=== PATIENT | female | born 1995 | race Caucasian/White ===

== ENCOUNTER 2018-04-11 16:43 | Emergency (ER) | payer SELFPAY ==
[~2018-04-11] VITALS: Ht 162.6 cm; Wt 51.5 kg
[2018-04-11 16:44] VITALS: BP 138/86
[2018-04-11 17:39] LABS: BACTERIA,URINE FEW /HPF (0-FEW); BILIRUBIN,URINE NEG (NEG); CLARITY,URINE CLEAR; COLOR,URINE YELLOW; GLUCOSE,URINE NEG (NEG); NITRITE,URINE NEG (NEG); RBC,URINE OCC /HPF (0-2); SQUAMOUS EPITHELIAL CELL,UR OCC /LPF; UROBILINOGEN,URINE 0.2 mg/dL (0.2 mg/dL)
--- NOTE | 2018-04-11 18:08 | PHYS DOC ---
Past History Past Medical History: No Pertinent History Past Surgical History: , Other Alcohol Use: None Drug Use: None Adult General Chief Complaint Chief Complaint: VAGINAL PROBLEM HPI HPI Patient is a 23 year old female Mirena IUD in place who presents with a pinning of vaginal discharge for 2 weeks. Patient complaining of intermittent episodes of brownish vaginal discharge for the last 2 weeks without abdominal pain, nausea, vomiting, urinary symptoms, fever and chills. Patient also states he usually gets her menstruation every month that did not have any menstruation since early February. Review of Systems Review of Systems Constitutional: Denies fever or chills [] Eyes: Denies change in visual acuity, redness, or eye pain [] HENT: Denies nasal congestion or sore throat [] Respiratory: Denies cough or shortness of breath [] Cardiovascular: No additional information not addressed in HPI [] GI: Denies abdominal pain, nausea, vomiting, bloody stools or diarrhea [] : Denies dysuria or hematuria [] Musculoskeletal: Denies back pain or joint pain [] Integument: Denies rash or skin lesions [] Neurologic: Denies headache, focal weakness or sensory changes [] Endocrine: Denies polyuria or polydipsia [] All other systems were reviewed and found to be within normal limits, except as documented in this note. Allergies Allergies Allergies Coded Allergies Type Severity Reaction Last Updated Verified No Known Drug Allergies 04/11/18 No Physical Exam Physical Exam Constitutional: Well developed, well nourished, no acute distress, non-toxic appearance. [] HENT: Normocephalic, atraumatic Eyes: PERRLA, EOMI, conjunctiva normal, no discharge. [] Neck: Normal range of motion, no tenderness, supple, no stridor. [] Cardiovascular:Heart rate regular rhythm, no murmur [] Lungs & Thorax: Bilateral breath sounds clear to auscultation [] Abdomen: Bowel sounds normal, soft, no tenderness, no masses, no pulsatile masses. Vaginal exam in present of bar roller showed mild to moderate vaginal bleeding with string of IUD in place without adnexal mass or tenderness Skin: Warm, dry, no erythema, no rash. [] Back: No tenderness, no CVA tenderness. [] Extremities: No tenderness, no cyanosis, no clubbing, ROM intact, no edema. [] Neurologic: Alert and oriented X 3, normal motor function, normal sensory function, no focal deficits noted. [] Psychologic: Affect normal, judgement normal, mood normal. [] Current Patient Data Vital Signs Vital Signs Date Time Temp Pulse Resp B/P (MAP) Pulse Ox O2 Delivery O2 Flow Rate FiO2 04/11/18 16:44 97.9 88 16 99 Room Air Lab Results Laboratory Tests Test 04/11/18 16:52 04/11/18 16:57 Urine Collection Type Unknown Urine Color Yellow Urine Clarity Clear Urine pH 6.0 Urine Specific [place] 1.025 Urine Protein Neg (NEG-TRACE) Urine Glucose (UA) Neg mg/dL (NEG) Urine Ketones (Stick) Trace mg/dL (NEG) Urine Blood Small (NEG) Urine Nitrite Neg (NEG) Urine Bilirubin Neg (NEG) Urine Urobilinogen Dipstick 0.2 mg/dL (0.2 mg/dL) Urine Leukocyte Esterase Neg (NEG) Urine RBC Occ /HPF (0-2) Urine WBC 1-4 /HPF (0-4) Urine Squamous Epithelial Cells Occ /LPF Urine Bacteria Few /HPF (0-FEW) Urine Mucus Mod /LPF POC Urine HCG, Qualitative hcg negative (Negative) Microbiology 04/11/18 Wet Prep - Final, Complete EKG EKG [] Radiology/Procedures Radiology/Procedures [] Course & Med Decision Making Course & Med Decision Making Pertinent Labs reviewed. (See chart for details) Evaluation of patient in ER showed 23-year-old female patient with complaining of vaginal discharge for 2 weeks and missing menstruation. Patient started to have her menstruation while she was in ER. UA and month was unremarkable and patient instructed to follow up with her [facility] for obtaining a Pap smear. Dragon Disclaimer Dragon Disclaimer This electronic medical record was generated, in whole or in part, using a voice recognition dictation system. Departure Departure: Impression: Primary Impression: Delayed menstruation Additional Impression: Vaginal discharge Disposition: 01 HOME, SELF-CARE (at 1806) Condition: STABLE Referrals: PCP,NO (PCP) Patient Instructions: Vaginitis, [id number] Additional Instructions: Drink plenty of liquids Follow-up with your [facility] physician in 3-5 days Return to ER if not getting better Problem Qualifiers ERNIE NORIEGA MD Apr 11, 2018 18:08
[2018-04-13 14:08] LABS: CHLAMYDIA PROBE Negative (Negative)
== END 2018-04-11 18:18 | disposition home or self-care (01) ==
LOC: ER 16:43
DX: N91.0 Primary amenorrhea (principal); N93.8 Other specified abnormal uterine and vaginal bleeding; Z98.890 Other specified postprocedural states
CPT/HCPCS: 36415; 81001; 81025; 87491; 87591; 99283; Q0111

== ENCOUNTER 2018-04-18 18:04 | Emergency (ER) | payer SELFPAY ==
[~2018-04-18] VITALS: Ht 162.6 cm; Wt 53.0 kg
--- NOTE | 2018-04-18 18:17 | ED.ADGEN ---
Past History Past Medical History: No Pertinent History, Constipation Past Medical History Hx. of colon perforation-2013, colostomy bag x 6 months Past Surgical History: , Other Alcohol Use: None Drug Use: None Adult General Chief Complaint Chief Complaint ",, I have not eaten for two days.. my abd. hurts all over.. I vomit even water..." HPI HPI Patient is a 23 year old female who presents with above complaints and abd. pain x 2 days. Pt. seen 05/29 for vaginal discharge and abd. pain. Pt. also seen at [facility] for similar complaint and CT at that time was negative per pt. Pt. symptoms resolved, but generalized abd. pain return the past 2 days with N/ V. Pt. is passing gas and stool. Reports normal colored and stool consistency in past 48 hrs. Pt. has hx of Mirena IUD, and C section with last of twins. Hx. of Colon perforation and repair in 2013 in [facility]. Pt. denies trauma, bad food, or specific ill contacts. Recently move from [facility]. to [place] two months ago. The denies drug use but does smoke. Review of Systems Review of Systems Constitutional: Denies fever or chills [] Eyes: Denies change in visual acuity, redness, or eye pain [] HENT: Denies nasal congestion or sore throat [] Respiratory: Denies cough or shortness of breath [] Cardiovascular: No additional information not addressed in HPI [] GI: Complaints of generalized abdominal pain, nausea, vomiting,. Denies bloody stools or diarrhea [] : Denies dysuria or hematuria [] Musculoskeletal: Denies back pain or joint pain [] Integument: Denies rash or skin lesions [] Neurologic: Denies headache, focal weakness or sensory changes [] Endocrine: Denies polyuria or polydipsia [] All other systems were reviewed and found to be within normal limits, except as documented in this note. Family History Family History Non-contributory Current Medications Current Medications Current Medications Medications (Trade) Dose Ordered Sig/Tiara Start Time Stop Time Status Last Admin Dose Admin Famotidine (Pepcid Vial) 20 mg 1X ONCE 04/18/18 18:30 04/18/18 18:31 DC 04/18/18 18:38 20 MG Ketorolac Tromethamine (Toradol 30mg Vial) 30 mg 1X ONCE 04/18/18 19:30 04/18/18 19:31 DC 04/18/18 19:11 30 MG Lactated Ringer's 1,000 ml @ 1,000 mls/hr Q1H 04/18/18 18:20 04/18/18 19:19 DC 04/18/18 18:37 1,000 MLS/HR Magnesium Hydroxide (Milk Of Magnesia) 2,400 mg 1X ONCE 04/18/18 19:45 04/18/18 19:46 DC 04/18/18 19:20 2,400 MG Ondansetron HCl (Zofran) 8 mg 1X ONCE 04/18/18 18:30 04/18/18 18:31 DC 04/18/18 18:38 8 MG Allergies Allergies Allergies Coded Allergies Type Severity Reaction Last Updated Verified No Known Drug Allergies 04/11/18 No Physical Exam Physical Exam Constitutional: Well developed, well nourished, in moderately acute distress, non-toxic appearance. [] HENT: Normocephalic, atraumatic, bilateral external ears normal, oropharynx moist, no oral exudates, nose normal. [] Eyes: PERRLA, EOMI, conjunctiva normal, no discharge. [] Neck: Normal range of motion, no tenderness, supple, no stridor. [] Cardiovascular:Heart rate regular rhythm, no murmur [] Lungs & Thorax: Bilateral breath sounds clear to auscultation [] Abdomen: Bowel sounds normal, soft, generalized tenderness, no masses, no pulsatile masses. [Old surgical scar- C section and Colon repair/ Colostomy, There seems to be some localization of abd. pain in Lt. Lower quadrant. Skin: Warm, dry, no erythema, no rash. [] Back: No tenderness, no CVA tenderness. [] Extremities: No tenderness, no cyanosis, no clubbing, ROM intact, no edema. [] Neurologic: Alert and oriented X 3, normal motor function, normal sensory function, no focal deficits noted. [] Psychologic: Affect anxious, judgement normal, mood normal. [] Current Patient Data Vital Signs Vital Signs Date Time Temp Pulse Resp B/P (MAP) Pulse Ox O2 Delivery O2 Flow Rate FiO2 04/18/18 19:49 76 117/59 (78) 97 04/18/18 19:12 16 04/18/18 18:43 Room Air 04/18/18 18:09 97.9 Lab Results Laboratory Tests Test 04/18/18 18:28 04/18/18 18:31 White Blood Count 5.6 x10^3/uL (4.0-11.0) Red Blood Count 4.77 x10^6/uL (3.50-5.40) Hemoglobin 15.0 g/dL (12.0-15.5) Hematocrit 44.2 % (36.0-47.0) Mean Corpuscular Volume 93 fL (79-100) Mean Corpuscular Hemoglobin 32 pg (25-35) Mean Corpuscular Hemoglobin Concent 34 g/dL (31-37) Red Cell Distribution Width 12.9 % (11.5-14.5) Platelet Count 258 x10^3/uL (140-400) Neutrophils (%) (Auto) 74 % (31-73) H Lymphocytes (%) (Auto) 16 % (24-48) L Monocytes (%) (Auto) 9 % (0-9) Eosinophils (%) (Auto) 1 % (0-3) Basophils (%) (Auto) 1 % (0-3) Neutrophils # (Auto) 4.1 x10^3uL (1.8-7.7) Lymphocytes # (Auto) 0.9 x10^3/uL (1.0-4.8) L Monocytes # (Auto) 0.5 x10^3/uL (0.0-1.1) Eosinophils # (Auto) 0.0 x10^3/uL (0.0-0.7) Basophils # (Auto) 0.0 x10^3/uL (0.0-0.2) Prothrombin Time 9.9 SEC (9.4-11.4) Prothrombin Time INR 1.0 (0.9-1.1) PTT 29 SEC (23-33) Urine Collection Type Unknown Urine Color Yellow Urine Clarity Clear Urine pH 7.0 Urine Specific [place] 1.015 Urine Protein Neg (NEG-TRACE) Urine Glucose (UA) Neg mg/dL (NEG) Urine Ketones (Stick) 80 mg/dL (NEG) Urine Blood Neg (NEG) Urine Nitrite Neg (NEG) Urine Bilirubin Neg (NEG) Urine Urobilinogen Dipstick 1 mg/dL (0.2 mg/dL) Urine Leukocyte Esterase Neg (NEG) Urine RBC 0 /HPF (0-2) Urine WBC 1-4 /HPF (0-4) Urine Squamous Epithelial Cells Occ /LPF Urine Transitional Epithelial Cells /LPF Urine Bacteria Few /HPF (0-FEW) Urine Mucus Mod /LPF Sodium Level 140 mmol/L (136-145) Potassium Level 3.3 mmol/L (3.5-5.1) L Chloride Level 102 mmol/L (98-107) Carbon Dioxide Level 28 mmol/L (21-32) Anion Gap 10 (6-14) Blood Urea Nitrogen 7 mg/dL (7-20) Creatinine 0.6 mg/dL (0.6-1.0) Estimated GFR (Cockcroft-Gault) 122.8 Glucose Level 79 mg/dL (70-99) Calcium Level 8.8 mg/dL (8.5-10.1) Total Bilirubin 1.1 mg/dL (0.2-1.0) H Direct Bilirubin 0.2 mg/dL (0.0-0.2) Aspartate Amino Transferase (AST) 18 U/L (15-37) Alanine Aminotransferase (ALT) 16 U/L (14-59) Alkaline Phosphatase 85 U/L (46-116) Total Protein 7.6 g/dL (6.4-8.2) Albumin 4.1 g/dL (3.4-5.0) Amylase Level 24 U/L (25-115) L Lipase 44 U/L (73-393) L Urine Opiates Screen Neg (NEG) Urine Methadone Screen Neg (NEG) Urine Barbiturates Neg (NEG) Urine Phencyclidine Screen Neg (NEG) Urine Amphetamine/Methamphetamine Neg (NEG) Urine Benzodiazepines Screen Neg (NEG) Urine Cocaine Screen Neg (NEG) Urine Cannabinoids Screen Pos (NEG) Urine Ethyl Alcohol Neg (NEG) Urine Test Negative (NEG) EKG EKG [] Radiology/Procedures Radiology/Procedures My interpretation acute abdomen film shows no acute cardiopulmonary changes. . Abdomen portion shows no free air under diaphragm. Does have increased stool throughout colon. Does have a IUD.[] Course & Med Decision Making Course & Med Decision Making Pertinent Labs and Imaging studies reviewed. (See chart for details) Pt. to stay on clear fluid diet only x 48 hrs. Must allow bowel rest. No solids or milk products. Re-exam if no improvement. May take tylenol and ibuprofen for discomfort. Take Zofran for nausea and vomiting. Return if any concerns. Followup with primary. Consider colon scopic evaluation because of past colon problems. Pt . declines CT of abd. at this time. [] Final Impression Final Impression 1. Generalized Abd. Pain, Nausea and Vomiting[] 2. Constipation 3. Marijuana and Tobacco Use Dragon Disclaimer Dragon Disclaimer This electronic medical record was generated, in whole or in part, using a voice recognition dictation system. RADHA ROSADO MD Apr 18, 2018 18:17
[2018-04-18] MEDS ORDERED: IV RINGERS SOLUTION,LACTATED 1,000 ML IV SCH (18:20)
[2018-04-18] MEDS ORDERED: ONDANSETRON PF 4 MG/2 ML VIAL. IV ONE (18:30)
[2018-04-18] MEDS ORDERED: FAMOTIDINE 20 MG/2 ML VIAL IVP ONE (18:30)
[2018-04-18 18:48] LABS: BASO % 1 % (0-3); EOS % 1 % (0-3); HEMATOCRIT 44.2 % (36.0-47.0); LYMPH # 0.9 x10^3/uL (1.0-4.8); LYMPH % 16 % (24-48); MEAN CORPUSCULAR HEMOGLOBIN 32 pg (25-35); MEAN CORPUSCULAR HGB CONC 34 g/dL (31-37); MEAN CORPUSCULAR VOLUME 93 fL (79-100); MONO # 0.5 x10^3/uL (0.0-1.1); MONO % 9 % (0-9); NEUT # 4.1 x10^3uL (1.8-7.7); NEUT % 74 % (31-73); PLATELET COUNT 258 x10^3/uL (140-400); RED BLOOD COUNT 4.77 x10^6/uL (3.50-5.40); RED CELL DISTRIBUTION WIDTH 12.9 % (11.5-14.5); WHITE BLOOD COUNT 5.6 x10^3/uL (4.0-11.0)
[2018-04-18 18:53] LABS: AMPHETAMINE/METHAMPHETAMINE NEG (NEG); BARBITURATES NEG (NEG); BENZODIAZEPINES NEG (NEG); CANNABINOIDS POS (NEG); COCAINE NEG (NEG); METHADONE NEG (NEG); OPIATES NEG (NEG); PHENCYCLIDINE NEG (NEG)
[2018-04-18 18:56] LABS: BACTERIA,URINE FEW /HPF (0-FEW); BILIRUBIN,URINE NEG (NEG); CLARITY,URINE CLEAR; COLOR,URINE YELLOW; GLUCOSE,URINE NEG (NEG); NITRITE,URINE NEG (NEG); RBC,URINE 0 /HPF (0-2); UROBILINOGEN,URINE 1 mg/dL (0.2 mg/dL)
[2018-04-18 18:57] LABS: SQUAMOUS EPITHELIAL CELL,UR OCC /LPF
--- NOTE | 2018-04-18 19:03 | RAD ---
PA chest and AP upright supine abdomen x-rays HISTORY: Severe left-sided abdominal pain and cramping, history of colostomy due to a colonic perforation in the past. FINDINGS: No pneumoperitoneum on the upright x-rays. Heart size is normal. No pneumothorax, pulmonary opacities or pleural effusions. Small left upper lobe calcified granuloma. Large volume of stool within the colon. No dilated small bowel loops. Intrauterine device. Bones unremarkable. Surgical change of the lower abdomen and pelvis is noted. IMPRESSION: Constipation with a large volume of stool. Electronically signed by: Louie Nuñez MD (04/18/2018 6:59 PM) [facility]
[2018-04-18 19:05] LABS: U PREG PATIENT NEGATIVE (NEG)
[2018-04-18 19:05] LABS: ALBUMIN 4.1 g/dL (3.4-5.0); CALCIUM 8.8 mg/dL (8.5-10.1); CREATININE 0.6 mg/dL (0.6-1.0); DIRECT BILIRUBIN 0.2 mg/dL (0.0-0.2); GFR 122.8; POTASSIUM 3.3 mmol/L (3.5-5.1); TOTAL BILIRUBIN 1.1 mg/dL (0.2-1.0); TOTAL PROTEIN 7.6 g/dL (6.4-8.2)
[2018-04-18] MEDS ORDERED: ONDA4TAB7 PO (19:22)
[2018-04-18] MEDS ORDERED: KETOROLAC 30 MG/ML VIAL. IV ONE (19:30)
[2018-04-18] MEDS ORDERED: MAGNESIUM HYDROXIDE 2,400 MG/30 ML ORAL.SUSP. PO ONE (19:45)
[2018-04-18 19:49] VITALS: BP 117/59
== END 2018-04-18 19:57 | disposition home or self-care (01) ==
LOC: ER 18:04
DX: K59.00 Constipation, unspecified (principal); R10.84 Generalized abdominal pain; R11.2 Nausea with vomiting, unspecified; F12.90 Cannabis use, unspecified, uncomplicated; Z72.0 Tobacco use; Z98.890 Other specified postprocedural states; Z93.3 Colostomy status
CPT/HCPCS: 36415; 74022; 80048; 80076; 80307; 81001; 81025; 82150; 83690; 85025; 85610; 85730; 96361; 96374; 96375; 99284; J1885; J2405; J3490; J7120